=== PATIENT | male | born 2000 | race African-American/Black ===

== ENCOUNTER 2020-11-08 19:32 | Emergency (ER) | payer OTHER ==
[2020-11-08 19:58] LABS: #Eosinphils 0.1 10x3/uL (0.0-0.5); #Monocytes 0.4 10x3/uL (0.0-1.1); %Basophils 0.6 % (0.0-2.0); %Eosinophils 1.5 % (0.0-6.0); %Lymphocytes 43.8 % (18.0-47.0); %Monocytes 9.1 % (0.0-10.0); Hemoglobin 14.4 g/dL (13.5-17.5); Mean Corpuscular HGB CONC 33.9 g/dL (32.0-36.0); Mean Corpuscular Hemoglobin 28.2 pg (27.0-33.0); Mean Corpuscular Volume 83.2 fl (81.2-95.1); Mean Platelet Volume 9.8 fl (7.4-10.4); Platelet Count 212 10x3/uL (150-450); RBC Distribution Width 13.1 % (11.5-14.5); Red Blood Cell (RBC) Count 5.11 10x6/uL (4.32-5.72); White Blood Cell (WBC) Count 4.7 10x3/uL (3.5-10.5)
[2020-11-08 20:23] LABS: ALT (SGPT) 10 U/L (8-55); AST (SGOT) 20 U/L (5-34); Albumin 3.8 g/dL (3.5-5.0); Alkaline Phosphatase 63 U/L (50-130); Anion Gap 15 mmol/L (10-20); BUN (Urea Nitrogen) 23 mg/dL (8.9-20.6); Bilirubin, Total 1.1 mg/dL (0.2-1.2); Calc. Creatinine Clearance 0 mL/min (70-130); Calcium 9.5 mg/dL (7.8-10.44); Carbon Dioxide 22 mmol/L (22-29); Chloride 106 mmol/L (98-107); Globulin 3.2 g/dL (2.4-3.5); Glucose 69 mg/dL (70-105); Potassium 4.8 mmol/L (3.5-5.1); Sodium 138 mmol/L (136-145)
== END 2020-11-08 21:15 | disposition home or self-care (01) ==
LOC: CSHERS 19:32
DX: R07.9 Chest pain, unspecified (principal); R56.9 Unspecified convulsions; Z79.899 Other long term (current) drug therapy
CPT/HCPCS: 71045; 80053; 84484; 85025; 93005